=== PATIENT | female | born 1960 | race Caucasian/White ===

== ENCOUNTER → 2025-02-22 13:21 | Outpatient (CLI) | payer OTHER, SELFPAY ==
--- NOTE | 2025-02-22 13:29 | DI.RAD.S_ITS ---
PROCEDURE: XR DEXA AXIAL SKELETON
== END ==
LOC: RAD 13:27
PROVIDERS: PCP Internal Medicine; Referring Provider Chiropractor; Visit Provider Chiropractor
DX: M81.0 Age-related osteoporosis without current pathological fracture (principal)
CPT/HCPCS: 77080